=== PATIENT | male | born 1955 | race Caucasian/White ===

== ENCOUNTER → 2022-03-18 | Outpatient (REF) | payer MEDICARE ==
[2022-03-18 19:22] LABS: BACTERIA, URINE NONE SEEN; HYALINE CAST, URINE NONE SEEN /lpf (0-1); MUCUS, URINE SMALL AMOUNT (NEGATIVE); SQUAMOUS EPITHELIAL CELL URINE SMALL AMOUNT /hpf (SMALL AMT); WBC, URINE 0-1 /hpf (0-3)
[2022-03-18 20:05] LABS: GC DNA AMPLIFICATION NEGATIVE (NEGATIVE)
== END ==
LOC: M LAB REF 16:56
PROVIDERS: ATTEND Internal Medicine
DX: Z72.51 High risk heterosexual behavior (principal); E29.1 Testicular hypofunction; R31.9 Hematuria, unspecified; Z11.3 Encounter for screening for infections with a predominantly sexual mode of transmission

== ENCOUNTER → 2022-03-22 | Outpatient (REF) | payer MEDICARE ==
[2022-03-22 14:07] LABS: HIV 1&2 SCREEN CENTAUR NEGATIVE (NEGATIVE)
[2022-03-22 14:15] LABS: HEPATITIS C VIRUS ABY INDEX 0.1 INDEX (<0.8)
[2022-03-23 11:08] LABS: TESTOSTERONE FREE (DIRECT) 8.9 pg/mL (6.6-18.1)
== END ==
LOC: M LAB REF 12:26
PROVIDERS: ATTEND Internal Medicine
DX: E29.1 Testicular hypofunction (principal); Z72.52 High risk homosexual behavior

== ENCOUNTER → 2022-09-16 | Outpatient (REF) | payer MEDICARE | LOC: M LAB REF 12:27 | PROVIDERS: ATTEND Internal Medicine | DX: Z11.4 Encounter for screening for human immunodeficiency virus [HIV] (principal) ==

== ENCOUNTER → 2023-09-18 | Outpatient (REF) | payer MEDICARE | LOC: M LAB REF 12:32 | PROVIDERS: ATTEND Internal Medicine | DX: Z11.4 Encounter for screening for human immunodeficiency virus [HIV] (principal) ==

== ENCOUNTER 2024-02-11 20:20 | Emergency (ER) | payer MEDICARE ==
[~2024-02-11] VITALS: Ht 182.9 cm; Wt 131.3 kg
[2024-02-11 20:25] VITALS: TEMP 98
[2024-02-11 22:14] LABS: BASO # 0.1 10^3/uL (0.0-0.2); BASO % 0.5 % (0.0-1.0); EOS # 0.1 10^3/uL (0.0-0.5); EOS % 1.3 % (0.0-3.0); LYMPH # 2.8 10^3/uL (1.5-5.0); LYMPH % 25.3 % (24.0-44.0); MEAN CORPUSCULAR HEMOGLOBIN 32.9 pg (27.0-33.0); MEAN CORPUSCULAR HGB CONC 34.1 g/dl (32.0-36.5); MONO # 0.8 10^3/uL (0.0-0.8); MONO % 7.2 % (2.0-8.0); NEUTROPHILS # 7.3 10^3/uL (1.5-8.5); NEUTROPHILS % 65.2 % (36.0-66.0); PLATELET COUNT, AUTOMATED 181 10^3/uL (150-450); RED BLOOD COUNT 5.92 10^6/uL (4.30-6.10); WHITE BLOOD COUNT 11.2 10^3/uL (4.0-10.0)
[2024-02-11 22:21] LABS: HEMATOCRIT 57.2 % (42.0-52.0); HEMOGLOBIN 19.5 g/dl (13.5-17.5)
[2024-02-11 22:22] LABS: MEAN CORPUSCULAR VOLUME 96.6 fl (80.0-96.0)
[2024-02-11 22:25] LABS: INR 1.1; PROTHROMBIN TIME 14.5 SECONDS (12.5-14.5)
[2024-02-11 22:32] LABS: ALBUMIN 3.7 G/DL (3.2-5.2); BILIRUBIN,DIRECT 0.2 MG/DL (<0.4); BILIRUBIN,TOTAL 0.5 MG/DL (0.3-1.2); TOTAL PROTEIN 7.6 G/DL (5.7-8.2)
[2024-02-11 22:38] LABS: MB/CK RELATIVE INDEX 3.09 (< OR =4)
[2024-02-11 23:01] LABS: CALCIUM LEVEL 9.3 MG/DL (8.3-10.6); CREATININE FOR GFR 1.36 MG/DL (0.70-1.30); GLOMERULAR FILTRATION RATE 55.5 (>49); POTASSIUM SERUM 4.7 MMOL/L (3.5-5.1)
[2024-02-11] MEDS: traMADol 50 MG TAB PO ONE (23:15)
[2024-02-12 00:31] VITALS: BP 151/73; O2SAT 94
[2024-02-12] MEDS ORDERED: MEDR4TAB PO (00:38)
[2024-02-12] MEDS: predniSONE 20 MG TAB PO ONE (00:50)
== END 2024-02-12 00:55 | disposition home or self-care (01) ==
LOC: M ED 20:20
DX: M25.511 Pain in right shoulder (principal); R79.89 Other specified abnormal findings of blood chemistry; I48.92 Unspecified atrial flutter; I44.0 Atrioventricular block, first degree; Z79.899 Other long term (current) drug therapy
CPT/HCPCS: 36415; 73200; 80048; 80076; 82550; 82553; 83690; 84484; 85025; 85610; 93005; 93041; 94760; 99285; J7512

== ENCOUNTER → 2024-03-20 | Outpatient (REF) | payer MEDICARE ==
[~2024-03-20] MED LIST: MEDR4TAB PO
== END ==
LOC: M LAB REF 12:45
PROVIDERS: ATTEND Internal Medicine
DX: Z11.4 Encounter for screening for human immunodeficiency virus [HIV] (principal); Z72.52 High risk homosexual behavior

== ENCOUNTER → 2024-07-30 | Outpatient (REF) | payer MEDICARE ==
[2024-07-30 18:15] LABS: HIV 1&2 SCREEN NEGATIVE (NEGATIVE)
[2024-07-30 19:41] LABS: GC DNA AMPLIFICATION NEGATIVE (NEGATIVE)
== END ==
LOC: M LAB REF 17:09
PROVIDERS: ATTEND Internal Medicine
DX: Z72.52 High risk homosexual behavior (principal); Z11.3 Encounter for screening for infections with a predominantly sexual mode of transmission

== ENCOUNTER → 2025-01-29 | Outpatient (REF) | payer MEDICARE ==
[2025-01-29 16:21] LABS: GC DNA AMPLIFICATION NEGATIVE (NEGATIVE)
== END ==
LOC: M LAB REF 14:18
PROVIDERS: ATTEND Internal Medicine
DX: I48.92 Unspecified atrial flutter (principal); Z72.52 High risk homosexual behavior; Z11.3 Encounter for screening for infections with a predominantly sexual mode of transmission